=== PATIENT | male | born 1980 | race Caucasian/White ===

== ENCOUNTER → 2021-03-21 | Outpatient (CLI) | payer OTHER ==
[~2021-03-21] MED LIST: CYCL10TA9 PO; HOLD METFORMIN - RECEIVED CONTRAST 20 ML VIAL IV SCH; TRM50T PO
[2021-03-21] MEDS: IOHEXOL 350 MG/ML 100 ML (OMNIPAQUE 350) VIAL IV ONE (16:19)
[2021-03-21] MEDS: NS 100 ML (IVPB) BAG IV ONE (16:19)
[2021-03-21] MEDS: CATHETER FLUSH 10 ML SYR IV PRN (16:19)
--- NOTE | 2021-03-21 16:47 | Diagnostic Imaging Report ---
PROCEDURE: CT angiography of the chest with contrast. TECHNIQUE: Multiple contiguous axial images were obtained through the chest after uneventful bolus administration of intravenous contrast. 3D reconstructed CTA MIP acquisitions were also performed. Auto Exposure Controls were utilized during the CT exam to meet ALARA standards for radiation dose reduction. INDICATION: Shortness of breath and COVID. FINDINGS: There are small foci of ground-glass density in the posterior right upper lobe as well as within the posteromedial right lower lobe. While nonspecific, they likely reflect subtle pulmonary manifestations of reported COVID. No effusion or pneumothorax. Thoracic aorta is patent and nonaneurysmal. There are no pulmonary arterial filling defects. There is no evidence for PE. The visualized upper abdomen shows fatty infiltration of the liver, but no acute finding. IMPRESSION: 1. Mild foci of ground-glass density in the right lower and right upper lobes likely owing to COVID involvement. 2. Negative for PE or other acute findings. Dictated by: Dictated on workstation # [id number]
== END ==
LOC: RAD FS 15:53
PROVIDERS: ATTEND Family Medicine
DX: U07.1 COVID-19 (principal); R79.1 Abnormal coagulation profile
CPT/HCPCS: 71275

== ENCOUNTER → 2022-11-26 | Outpatient (CLI) | payer OTHER, SELFPAY ==
[~2022-11-26] MED LIST changes: +CYCL10TA25 PO; -CYCL10TA9 PO; -HOLD METFORMIN - RECEIVED CONTRAST 20 ML VIAL IV SCH
--- NOTE | 2022-11-26 20:10 | Diagnostic Imaging Report ---
INDICATION: Hyperlipidemia. CORRELATED with CT angio chest 03/21/2021. Limited noncontrasted chest CT through the heart is performed for assessing coronary artery calcifications. There is no coronary artery calcified plaque. The visible thoracic aorta is nonaneurysmal. There is no visible hilar or mediastinal adenopathy and the portions of the central lungs included in the [id number] nonacute and unremarkable. IMPRESSION: No radiodense calcified coronary artery plaque. Dictated by: Dictated on workstation # [id number]
== END ==
LOC: RAD FS 08:00
PROVIDERS: ATTEND Nurse Practitioner Family
DX: E78.5 Hyperlipidemia, unspecified (principal)
CPT/HCPCS: 75571